=== PATIENT | male | born 2000 | race Caucasian/White ===

== ENCOUNTER 2018-03-13 09:15 | Emergency (ER) | payer BC ==
--- NOTE | 2018-03-13 09:27 | Emergency Department Record ---
History of Present Illness - General Chief complaint: ENT Stated complaint: BLEEDING AFTER TONSILLECTOMY Time Seen by Provider: 03/13/18 09:21 Source: Patient, Family Mode of Arrival: Ambulatory - History of Present Illness Initial comments: 17 yo male presents for a check of his tonsils. He had tonsillectomy last Monday. He has had controlled pain. NO fevers. He ate some fish yesterday. Late last night he noted a small amount of blood in his spit/saliva. No recurrence of bleeding since then. His pain is very mild. His surgeon was Dr Montesinos on [address]. He called the office but the mother states the office was not helpful on providing advice. MD complaint: Other (Noted some blood in his saliva last night. No bleeding this morning) Onset/Timin -: Days(s) (1) Location: Throat Severity: Mild Consistency: Constant Improves with: None Worsens with: None Context-Epistaxis: Recent surgery/procedure Context- Dental: Other Context- Ear: Other Associated Symptoms: Other - Related Data Home Medications Medication Instructions Recorded Confirmed Last Taken Ibuprofen [Ibu] 600 mg PO Q6H 03/13/18 03/13/18 Unknown Oxycodone HCl/Acetaminophen 5 mg PO Q6H 03/13/18 03/13/18 03/13/18 [Percocet 5mg/325mg] Allergies Allergy/AdvReac Type Severity Reaction Status Date / Time No Known Drug Allergies Allergy Unverified 10/17/17 13:57 Travel Screening - Travel/Exposure Within Last 30 Days Have you traveled within the last 30 days?: No Review of Systems Constitutional: Denies: Chills, Fever, Malaise, Weakness Eyes: Denies: Eye discharge ENT: Reports: As per HPI, Throat pain. Denies: Congestion, Dental pain, Ear pain, Epistaxis Respiratory: Denies: Cough, Dyspnea Cardiovascular: Denies: Chest pain Endocrine: Denies: Fatigue Gastrointestinal: Denies: Diarrhea, Nausea, Vomiting Genitourinary: Denies: Dysuria, Frequency, Hematuria Musculoskeletal: Denies: Arthralgia, Myalgia Skin: Denies: Bruising, Change in color, Rash Neurological: Denies: Numbness, Weakness Psychiatric: Denies: Anxiety Hematological/Lymphatic: Reports: Swollen glands. Denies: Blood Clots, Easy bleeding, Easy bruising Past Medical History - SOCIAL HISTORY Smoking Status: Never smoker Alcohol Use: None Drug Use: None - RESPIRATORY Hx Respiratory Disorders: Yes Comment:: seasonal allergies - CARDIOVASCULAR Hx Cardio Disorders: No - NEURO Hx Neuro Disorders: No - GI Hx GI Disorders: No - Hx Genitourinary Disorders: No - ENDOCRINE Hx Endocrine Disorders: No - MUSCULOSKELETAL Hx Musculoskeletal Disorders: No Comment:: broken R hand and fingers - PSYCH Hx Psych Problems: No - HEMATOLOGY/ONCOLOGY Hx Hematology/Oncology Disorders: No Family Medical History Any Significant Family History?: Yes Hx Cancer: Grandparents Hx Diabetes: Grandparents Hx Heart Disease: Grandparents Hx Stroke: Grandparents Physical Exam - General General Appearance: Alert, Oriented x3, Cooperative, No acute distress, Other ( Well appearing, clear voice, no complaints) Limitations: No limitations - Head Head exam: Atraumatic, Normal inspection - Eye Eye exam: Normal appearance. negative: Conjunctival injection, Scleral icterus - ENT ENT exam: Normal exam, Mucous membranes moist Ear exam: Normal external inspection Nasal Exam: Normal inspection Mouth exam: Normal external inspection Throat exam: Other (The tonsils have the intact bilateral eschar. On the right there is a 5mm x 5mm area of raw mucosa superior. No fresh bleeding or clot. No swelling. The eschars appear appropriate, no signs of complication, no signs of impending bleeding or unstable clot or scab.). negative: Normal inspection, Tonsillomegaly, R peritonsillar mass, L peritonsillar mass - Neck Neck exam: Normal inspection, Full ROM. negative: Lymphadenopathy - Respiratory Respiratory exam: Normal lung sounds bilaterally. negative: Respiratory distress - Cardiovascular Cardiovascular Exam: Regular rate, Normal rhythm, Normal heart sounds - Neurological Neurological exam: Alert, Oriented X3 - Psychiatric Psychiatric exam: Normal affect, Normal mood. negative: Agitated, Anxious - Skin Skin exam: Dry, Intact, Normal color, Warm Course Vital Signs 03/13/ 09:17 Pulse Rate 89 Respiratory 18 Rate Blood Pressure 111/81 Pulse Ox 98 - Reevaluation(s) Reevaluation #1: The patient is well appearing and very comfortable with a clear voice. The examination is appropriate for his POD. No signs of bleeding. No visible clot or unstable area. No signs of fresh bleeding or remote bleeding. CBC ordered. We discussed no foods that require chewing. Soft foods only. We discussed close follow up with Dr Montesinos of ENT if any concerns. 03/13/18 09:33 03/13/18 09:52 The CBC was reviewed. Normal CBC. Medical Decision Making - Lab Data Result diagrams: 03/13/18 09:40 Disposition Disposition: Discharge Clinical Impression: Post-tonsillectomy hemorrhage Disposition: Home, Self-Care Condition: (1) Good Instructions: Soft Diet (ED) Additional Instructions: Call your doctor or go directly to the [facility] if you have any pain or return of any blood Soft diet only Do not eat any foods that require chewing. Forms: Patient Portal Access Time of Disposition: 09:53 Quality - Quality Measures Quality Measures: N/A - Blood Pressure Screening Does Patient Have Any of the Following: No Blood Pressure Classification: Pre-Hypertensive BP Reading Systolic Measurement: 111 Diastolic Measurement: 81 Screening for High Blood Pressure: < Pre-Hypertensive BP, F/U Documented > [ [id number]] Pre-Hypertensive Follow-up Interventions: Referral to alternative/primary care provider.
[2018-03-13 09:48] LABS: BASO % 0.5 % (0-6); EOS % 1.4 % (0-6); GRAN % 57.8 % (47-80); HEMATOCRIT 44.7 % (42.0-52.0); HEMOGLOBIN 15.9 gm/dl (14.0-18.0); LYMPH % 29.9 % (16-45); MEAN CELL VOLUME 87.8 fl (81-97); MEAN CORPUSCULAR HEMOGLOBIN 31.2 pg (27-33); MEAN CORPUSCULAR HGB CONC 35.6 g/dl (32-36); MEAN PLATELET VOLUME 8.6 fl (7.4-10.4); MONO % 10.4 % (0-9); PLATELET COUNT 340 K/uL (130-400); RED BLOOD COUNT 5.09 M/uL (4.40-5.70); WHITE BLOOD COUNT W/O DIFF 5.9 K/uL (4.2-12.2)
== END 2018-03-13 10:08 | disposition home or self-care (01) ==
LOC: ER 09:15
DX: K91.840 Postprocedural hemorrhage of a digestive system organ or structure following a digestive system procedure (principal); Y83.8 Other surgical procedures as the cause of abnormal reaction of the patient, or of later complication, without mention of misadventure at the time of the procedure
CPT/HCPCS: 85025; 99283